=== PATIENT | female | born 1955 | race Two or more races ===

== ENCOUNTER 2020-04-25 09:57 | Emergency (ER) | payer OTHER ==
[~2020-04-25] VITALS: Ht 157.5 cm; Wt 49.9 kg
[2020-04-25 10:02] VITALS: BP 210/99
[2020-04-25] MEDS ORDERED: cloNIDine HCL 0.1 MG TAB PO ONE (10:15)
[2020-04-25 11:14] LABS: Basophils # (auto) 0.1 10 ^3/uL (0-0.2); Basophils % (auto) 2.4 % (0.0-2.0); Eosinophils # (auto) 0.2 10 ^3/uL (0-0.8); Eosinophils % (auto) 2.7 % (0.0-7.0); Hematocrit 40.6 % (36.0-46.0); Hemoglobin 13.7 g/dL (12.2-16.2); Lymphocytes # (auto) 1.5 10 ^3/uL (0.4-5.4); Lymphocytes % (auto) 26.1 % (10.0-50.0); Mean Corpuscular Hemoglobin 27.3 pg (28.0-32.0); Mean Corpuscular Hgb Conc. 33.8 g/dL (32.0-36.0); Mean Corpuscular Volume 80.8 fL (80.0-100.0); Monocytes # (auto) 0.5 10 ^3/uL (0-1.3); Monocytes % (auto) 8.3 % (0.0-12.0); Neutrophils # (auto) 3.6 10 ^3/uL (1.6-8.6); Neutrophils % (auto) 60.5 % (37.0-80.0); Platelet Count (auto) 259 10^3/uL (140-450); Red Blood Cells 5.03 10^6/uL (4.0-5.20); White Blood Cell 5.9 10^3/uL (4.4-10.8)
[2020-04-25 11:36] LABS: Alanine Aminotransferase 24 U/L (13-56); Albumin 3.7 g/dL (3.4-5.0); Anion Gap 8 (5-15); Aspartate Aminotransferase 12 U/L (15-37); Blood Urea Nitrogen 11 mg/dL (7-18); Calcium 9.1 mg/dL (8.5-10.1); Carbon Dioxide 26 mmol/L (21-32); Chloride 103 mmol/L (98-107); Glucose 231 mg/dL (74-106); Potassium 4.1 mmol/L (3.5-5.1); Sodium 137 mmol/L (136-145)
[2020-04-25 11:41] LABS: Alkaline Phosphatase 99 U/L (45-117); BUN/Creatinine Ratio 15.1; Bilirubin, Total 0.6 mg/dL (0.2-1.0); GFR African American 102 mL/min; GFR Non-African American 85 mL/min; Total Protein 7.5 g/dL (6.4-8.2)
== END 2020-04-25 14:12 | disposition left against medical advice (07) ==
LOC: EDBD 09:57 → ER 09:57
DX: I10 Essential (primary) hypertension (principal); R73.9 Hyperglycemia, unspecified
CPT/HCPCS: 36415; 71045; 71250; 72131; 80053; 84484; 85025; 93005

== ENCOUNTER 2025-10-26 16:01 | Emergency (ER) | payer OTHER ==
[~2025-10-26] VITALS: Ht 152.4 cm; Wt 55.0 kg
[2025-10-26 16:22] VITALS: BP 156/92; PULSE 101; RESP 16; TEMP 97.8; O2SAT 98
== END 2025-10-26 19:52 | disposition left against medical advice (07) ==
LOC: EDBD 16:01 → ER 16:01
DX: M54.9 Dorsalgia, unspecified (principal); Z79.899 Other long term (current) drug therapy